=== PATIENT | male | born 1975 ===

== ENCOUNTER 2016-09-19 18:33 | Emergency (ER) | payer BC ==
--- NOTE | ~2016-09-19 | ER ---
PATIENT'S NAME: ROGELIO TSE [facility] AGE: 41 Y [address] ROOM: [place] [address] LOCATION: [facility] ADMIT DATE: 09/19/2016 ER/Outpatient Report DISCHARGE DATE: 09/19/2016 FAMILY PHYSICIAN: Grayson Aden MD ATTENDING PHYSICIAN: Taye Adan Admission date and time are documented on the medical record. I saw the patient at 1845 hours. CHIEF COMPLAINT: Left midanterior lateral ribcage pain. HISTORY OF PRESENT ILLNESS: The patient is a 41-year-old male who presented to the emergency room with left [id number] anterolateral ribcage pain. Ten days ago, he was having some problems with his lower back and his [id number] went from behind him, put his arms around him, lifted him, and popped his back. He then put his arms up a little bit farther up into the midchest, did it again, and he felt a pop in his ribcage. Pain is stabbing in nature and increased with deep breathing. It hurts when he does certain movements lifting, pushing, and pulling. He is not really short of breath, he just cannot take a deep breath without pain. No recent coughs, colds, flus, fever, chills, or sweats. No lightheadedness, dizziness, syncope, or near syncope. No headache, eyes, ears, nose, throat, neck, or spine pain. No skin eruptions or rash. No other joint or muscle swelling, redness, or pain. No neuro changes, psych issues, or endocrine problems. HOME MEDICATIONS: See attached medication list. ALLERGIES: PENICILLIN. SOCIAL HISTORY: Nonsmoker. Occasional intake of alcohol. SIGNIFICANT PAST MEDICAL HISTORY: Gastroesophageal reflux. OPERATIONS: Hemorrhoidectomy. REVIEW OF SYSTEMS: All systems reviewed by me are negative with the exception of those discussed in the history of present illness. PATIENT'S NAME: ROGELIO TSE [facility] AGE: 41 Y [address] ROOM: [place] [address] LOCATION: [facility] ADMIT DATE: 09/19/2016 ER/Outpatient Report DISCHARGE DATE: 09/19/2016 FAMILY PHYSICIAN: Grayson Aden MD ATTENDING PHYSICIAN: Taye Adan PHYSICAL EXAMINATION: VITAL SIGNS: Temperature 97.5, tympanic, pulse 84, respirations 16, blood pressure 136/94, and O2 sat on room air is 95%. HEAD: Normocephalic. EYES, EARS, NOSE, THROAT: Clear. NECK: Negative. SPINE: Negative. LUNGS: Clear. No rales, rhonchi, or wheezes. HEART: Regular. Pulses are palpable. The patient has tenderness over the midanterior chest wall and a point tenderness. No deformity. ABDOMEN: Soft, nondistended, nontender. Good bowel tones. No organomegaly or abnormal mass palpable. EXTREMITIES: Intact. NEUROVASCULAR: Intact. SKIN: Clear. No skin eruptions or rash. IMAGING DATA: Chest x-ray showed no acute infiltrate or changes. Left rib detail shows questionable rib fracture. We will review all plain films with the radiologist. IMPRESSION: 1. Left ribcage pain and injury, suspect left anterior midrib fracture. No evidence of pneumothorax, hemothorax, or lung contusion. 2. Gastroesophageal reflux. PLAN: The patient was dismissed from the emergency department. Observation. Activity as tolerated. Ice, heat, or combination of ice, heat to sore areas intermittently as needed. Continue home medications and care. [place] 7.5/325 as needed for pain. Aleve 2 orally 2 times a day with food x7-10 days and then as needed thereafter. Follow up with personal physician as needed. Discussion ensued with the patient concerning my findings and recommendations, he understands. MD JAE GONSALEZ/modl /[id number] d: 09/19/16 2359 t: 09/20/16 1825, OUTPATIENT REPORT
== END 2016-09-19 19:35 | disposition disaster alternative care site (69) ==
LOC: GMED 18:33
DX: S29.9XXA Unspecified injury of thorax, initial encounter (principal); K21.9 Gastro-esophageal reflux disease without esophagitis; Z88.0 Allergy status to penicillin; Z79.899 Other long term (current) drug therapy; Z98.890 Other specified postprocedural states; X58.XXXA Exposure to other specified factors, initial encounter